=== PATIENT | male | born 1955 | race Caucasian/White ===

== ENCOUNTER 2024-06-11 12:16 | Emergency (ER) | payer MEDICARE ==
[~2024-06-11] VITALS: Ht 190.5 cm; Wt 119.5 kg
[2024-06-11 13:52] VITALS: BP 132/88
== END 2024-06-11 13:52 | disposition home or self-care (01) ==
LOC: ED 12:16
DX: T83.091A Other mechanical complication of indwelling urethral catheter, initial encounter (principal); Z91.040 Latex allergy status; Z88.6 Allergy status to analgesic agent
CPT/HCPCS: 51702; 99283; A4311